=== PATIENT | male | born 1960 | race Caucasian/White ===

== ENCOUNTER → 2017-11-01 | Outpatient (CLI) | payer OTHER ==
--- NOTE | 2017-11-01 22:22 | MR ---
EXAMINATION TYPE: MR cervical spine wo/w con DATE OF EXAM: 11/01/2017 COMPARISON: NONE HISTORY: Fusion 1981, Hand and Neck Numbness, Gadavist 7.5 ml TECHNIQUE: Multiplanar, multisequence images of the cervical spine were acquired utilizing 7.5 mL intravenous Ga davist gadolinium contrast. Diffusion weighted imaging was performed. C2-C3: No evidence for degenerative disc disease. No disc bulge/herniation or protrusion. No Canal stenosis. Foramina are patent bilaterally. C3-C4: There is loss of disc height and signal present. Posterior extension of endplate disc complex causes moderate to possibly severe canal stenosis, lateral extension of endplate disc complex results in bilateral foraminal encroachment right greater than left, posterior extension of endplate disc co mplex likely contacts the anterior cervical cord. C4-C5: There has been fusion at C4-5. There is myelomalacia within the cervical cord at this level. N o significant central stenosis. No evident foraminal encroachment C5-C6: Lateral extension of endplate disc complex causes bilateral foraminal encroachment. No signifi cant central stenosis. Minimal posterior broad-based disc bulge causes slight anterior mass effect on the thecal sac. C6-C7: Lateral extension of endplate disc complex causes foraminal encroachment left greater than rig ht. Posterior broad-based disc bulge causes mild anterior mass effect on the thecal sac. C7-T1: No evidence for degenerative disc disease. No disc bulge/herniation or protrusion. No Canal stenosis. Foramina are patent bilaterally. Cervical segments are intact. There is normal alignment. Cervical spinal cord is of normal signal. Craniovertebral junction relationships are within normal limits. There is a spinal curvature. No si gnificant canal stenosis. No abnormal enhancement following contrast administration. Incidental mucos al disease present within the maxillary sinus IMPRESSION: Multilevel degenerative disc disease, postop changes, canal stenosis greatest at C3-4. 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 Spinal curvature.
== END | disposition home or self-care (01) ==
LOC: RADMRIMAIN 20:54
PROVIDERS: ATTEND Physical Medicine & Rehabilitation
DX: M50.30 Other cervical disc degeneration, unspecified cervical region (principal); Z98.890 Other specified postprocedural states; M48.02 Spinal stenosis, cervical region; G95.89 Other specified diseases of spinal cord; M43.9 Deforming dorsopathy, unspecified
CPT/HCPCS: 72156; A9581